=== PATIENT | male | born 1955 | race Caucasian/White ===

== ENCOUNTER → 2016-08-16 | Outpatient (CLI) | payer BC ==
--- NOTE | 2016-08-16 13:33 | DI ---
Indication: ITS.REASON: R10.9 RT FLANK PAIN; R31.9 HEMATURIA PROCEDURE: CT RENAL W/O CONTRAST: Encounter: Initial Comparison: None Technique: Axial CT images were performed through the abdomen and pelvis without intravenous contrast. Coronal and sagittal two-dimensional reformats. Automated Exposure Control and Iterative Reconstruction dose reducing techniques were utilized. Findings: Mild atelectasis in the right lung base. Calcified subcarinal lymph node consistent with old granulomatous disease. The liver is decreased in attenuation consistent with fatty infiltration. The spleen shows granulomas and is normal in size. The pancreas and adrenal glands are within normal limits. The left kidney shows a 3 mm interpolar area stone. No left ureteral stone. Right kidney shows mild hydronephrosis. Probable small upper pole cyst seen. No intrarenal stones on the right. Mild right hydroureter to the level of an obstructing 8 mm stone in the ureter just proximal to the crossing of the pelvic vessels at the L5 level. No additional ureteral stones. Bladder is normal. Prostate and rectum are unremarkable. No free fluid. Minimal sigmoid diverticulosis without diverticulitis. The appendix is normal. Bone windows show degenerative change in the spine. Impression: Obstructing 8 mm right ureteral stone. .
== END ==
LOC: IMA 12:43
PROVIDERS: ATTEND Family Medicine
DX: N13.2 Hydronephrosis with renal and ureteral calculous obstruction (principal); R31.9 Hematuria, unspecified; R10.11 Right upper quadrant pain